=== PATIENT | male | born 1940 | race Caucasian/White ===

== ENCOUNTER 2018-06-19 21:58 | Emergency (ER) | payer OTHER ==
[2018-06-20] MEDS ORDERED: ALBUTEROL 2.5 MG/3 ML NEB SOL ONE (00:20)
[2018-06-20] MEDS ORDERED: IPRATROPIUM BROM 0.5MG/2.5ML ONE (00:20)
--- NOTE | 2018-06-20 00:24 | EDPHYS ---
Physician Documentation [facility] Name: Akira Murphy Age: 78 yrs Sex: Male : 1940 Arrival Date: 06/19/2018 Time: 22:01 Bed 20 Private MD: Mary Reich C ED Physician Basilio Orona HPI: 06/20 06:51 This 78 yrs old Male presents to ER via Ambulatory with complaints of tw4 Congestion, Cough. 06:51 The patient or guardian reports cough, with productive sputum. Onset: The tw4 symptoms/episode began/occurred 2 day(s) ago. Severity of symptoms: At their worst the symptoms were moderate. Modifying factors: The symptoms are alleviated by nothing, the symptoms are aggravated by nothing. The patient has not experienced similar symptoms in the past. Historical: - Allergies: 06/19 22:30 Levaquin; jb4 22:30 Levofloxacin; jb4 - Home Meds: 22:30 Atenolol Oral [Active]; metformin 500 mg Oral TG24 2 times per day [Active]; jb4 Simvastatin Oral [Active]; valsartan Oral [Active]; Vitamin C 1,000 mg Oral tab daily [Active]; Vitamin B-12 Oral [Active]; Zyrtec 10 mg Oral tab 1 tab once daily [Active]; 22:30 Tradjenta oral oral [Active]; amlodipine oral [Active]; jb4 - PMHx: 22:30 allergies; Diabetes - NIDDM; GERD; High Cholesterol; Hypertension; jb4 - PSHx: 22:30 Neck Surgery; Bilateral Knee Replacement; jb4 - Immunization history:: Adult Immunizations up to date, Pneumococcal vaccine is not up to date, Flu vaccine is up to date. - Social history:: Smoking status: Patient/guardian denies using tobacco, but has a distant history of tobacco abuse, Patient uses alcohol, occasionally. - Ebola Screening: : No symptoms or risks identified at this time. ROS: 06/20 06:51 Constitutional: Negative for fever, chills, and weight loss, Cardiovascular: Negative tw4 for chest pain, palpitations, and edema, Abdomen/GI: Negative for abdominal pain, nausea, vomiting, diarrhea, and constipation, Back: Negative for injury and pain, MS/Extremity: Negative for injury and deformity, Skin: Negative for injury, rash, and discoloration, Neuro: Negative for headache, weakness, numbness, tingling, and seizure. Respiratory: Positive for cough, "sounds productive", Negative for dyspnea on exertion, shortness of breath, sputum production. Exam: 06:51 Constitutional: This is a well developed, well nourished patient who is awake, alert, tw4 and in no acute distress. Head/Face: Normocephalic, atraumatic. Chest/axilla: Normal chest wall appearance and motion. Nontender with no deformity. No lesions are appreciated. Cardiovascular: Regular rate and rhythm with a normal S1 and S2. No gallops, murmurs, or rubs. Normal PMI, no JVD. No pulse deficits. 06:51 Back: No spinal tenderness. No costovertebral tenderness. Full range of motion. MS/ Extremity: Pulses equal, no cyanosis. Neurovascular intact. Full, normal range of motion. Neuro: Awake and alert, GCS 15, oriented to person, place, time, and situation. Cranial nerves II-XII grossly intact. Motor strength 5/5 in all extremities. Sensory grossly intact. Cerebellar exam normal. Normal gait. 06:51 Respiratory: the patient does not display signs of respiratory distress, Respirations: normal, Breath sounds: wheezing: that is mild, is scattered. Vital Signs: 06/19 22:30 BP 134 / 58; Pulse 65; Resp 18; Temp 98.6(O); Pulse Ox 95% on R/A; Weight 115.21 kg jb4 (R); Height 5 ft. 9 in. (175.26 cm) (R); Pain 0/10; 06/20 00:00 BP 140 / 58; Pulse 58; Resp 18; Pulse Ox 95% on R/A; jb4 06/19 22:30 Body Mass Index 37.51 (115.21 kg, 175.26 cm) jb4 MDM: 06/19 22:20 Patient medically screened. tw4 06/20 06:51 Differential Diagnosis: Obstructed Airway Bronchitis Influenza Upper Respiratory tw4 Infection. Data reviewed: vital signs, nurses notes. Data interpreted: Pulse oximetry: Interpretation: normal. Test interpretation: by ED physician or midlevel provider: plain radiologic studies. Counseling: I had a detailed discussion with the patient and/or guardian regarding: the historical points, exam findings, and any diagnostic results supporting the discharge/admit diagnosis, lab results, radiology results. Medication response: albuterol nebulizer treatment(s) relieved the patient's symptoms. The patient is no longer wheezing. Response to treatment: the patient's symptoms have resolved after treatment, and as a result, I will discharge patient. 06/19 22:21 Order name: Flu tw4 06/19 22:21 Order name: Influenza Screen (A EDMS 06/19 22:21 Order name: Chest Single View XRAY tw4 Administered Medications: 00:13 Drug: Albuterol 2.5 mg Route: Inhalation; jb4 00:38 Follow up: Response: No adverse reaction; Wheezing unchanged jb4 00:13 Drug: AtroVENT Aerosol 0.5 mg Route: Inhalation; jb4 00:38 Follow up: Response: No adverse reaction; Wheezing unchanged jb4 Disposition: 06/20/18 00:23 Discharged to Home. Impression: Acute bronchitis. - Condition is Stable. - Discharge Instructions: Acute Bronchitis, Adult, Acute Bronchitis, [id number]. - Prescriptions for Tessalon Perles 100 mg Oral Capsule - take 1 capsule by ORAL route every 8 hours As needed; 15 capsule. Zithromax Z- [place] 250 mg Oral Tablet - take 1 tablet by ORAL route as directed for 5 days Day 1 - take two (2) tablets one time. Day 2, 3, 4 , 5 take one (1) tablet once daily.; 6 tablet. Albuterol Sulfate 90 mcg/actuation - inhale 1-2 puff by INHALATION route every 4-6 hours; 1 Inhaler. - Medication Reconciliation Form, Thank You Letter, Antibiotic Education, Prescription Opioid Use form. - Follow up: Mary Reich MD; When: Upon discharge from the Emergency Department; Reason: If symptoms return, Recheck today's complaints, Continuance of care. - Problem is new. - Symptoms have improved. Signatures: Dispatcher [employer] Albin Velasquez RN RN jb4 Basilio Orona MD MD tw4 Corrections: (The following items were deleted from the chart) 00:39 00:23 06/20/2018 00:23 Discharged to Home. Impression: Acute bronchitis. Condition is jb4 Stable. Forms are Medication Reconciliation Form, Thank You Letter, Antibiotic Education, Prescription Opioid Use. Follow up: Mary Reich; When: Upon discharge from the Emergency Department; Reason: If symptoms return, Recheck today's complaints, Continuance of care. Problem is new. Symptoms have improved. tw4
--- NOTE | 2018-06-20 00:24 | ER ---
Nurse's Notes [facility] Name: Akira Murphy Age: 78 yrs Sex: Male : 1940 Arrival Date: 06/19/2018 Time: 22:01 Bed 20 Private MD: Mary Reich C Diagnosis: Acute bronchitis Presentation: 06/19 22:44 Presenting complaint: Patient states: I have been coughing since Thursday and I am jb4 coughing stuff up. I went to Dr. Reich and was given Mucinex and Amoxicillin. Transition of care: patient was not received from another setting of care. Onset of symptoms was June 15, 2018. Risk Assessment: Do you want to hurt yourself or someone else? Patient reports no desire to harm self or others. Initial Sepsis Screen: Does the patient meet any 2 criteria? No. Patient's initial sepsis screen is negative. Does the patient have a suspected source of infection? No. Patient's initial sepsis screen is negative. Care prior to arrival: None. 22:44 Method Of Arrival: Ambulatory jb4 22:44 Acuity: DARLIN 3 jb4 Historical: - Allergies: 22:30 Levaquin; jb4 22:30 Levofloxacin; jb4 - Home Meds: 22:30 Atenolol Oral [Active]; metformin 500 mg Oral TG24 2 times per day [Active]; jb4 Simvastatin Oral [Active]; valsartan Oral [Active]; Vitamin C 1,000 mg Oral tab daily [Active]; Vitamin B-12 Oral [Active]; Zyrtec 10 mg Oral tab 1 tab once daily [Active]; 22:30 Tradjenta oral oral [Active]; amlodipine oral [Active]; jb4 - PMHx: 22:30 allergies; Diabetes - NIDDM; GERD; High Cholesterol; Hypertension; jb4 - PSHx: 22:30 Neck Surgery; Bilateral Knee Replacement; jb4 - Immunization history:: Adult Immunizations up to date, Pneumococcal vaccine is not up to date, Flu vaccine is up to date. - Social history:: Smoking status: Patient/guardian denies using tobacco, but has a distant history of tobacco abuse, Patient uses alcohol, occasionally. - Ebola Screening: : No symptoms or risks identified at this time. Screenin:00 Abuse screen: Denies threats or abuse. Nutritional screening: No deficits noted. jb4 Tuberculosis screening: No symptoms or risk factors identified. Fall Risk None identified. Assessment: 23:00 General: Appears comfortable, obese, Behavior is calm, cooperative, appropriate for jb4 age. Pain: Complains of pain in right lower quadrant and left lower quadrant Pain radiates to low back area Pain currently is 0 out of 10 on a pain scale. at worst was 5 out of 10 on a pain scale. Aggravated by Coughing. Neuro: Level of Consciousness is awake, alert, obeys commands, Oriented to person, place, time, situation. Cardiovascular: Heart tones S1 S2 present Patient's skin is warm and dry. Respiratory: Airway is patent Respiratory effort is even, unlabored, Respiratory pattern is regular, symmetrical, Breath sounds with rhonchi bilaterally. GI: Reports lower abdominal pain, With coughing. : No signs and/or symptoms were reported regarding the genitourinary system. EENT: No signs and/or symptoms were reported regarding the EENT system. Derm: Skin is intact, Skin is pink, warm \T\ dry. Musculoskeletal: Circulation, motion, and sensation intact. 06/20 00:00 Reassessment: No changes from previously documented assessment. Patient and/or family jb4 updated on plan of care and expected duration. Pain level reassessed. Patient is alert, oriented x 3, equal unlabored respirations, skin warm/dry/pink. 00:35 Reassessment: Patient appears in no apparent distress at this time. Patient and/or jb4 family updated on plan of care and expected duration. Pain level reassessed. Patient is alert, oriented x 3, equal unlabored respirations, skin warm/dry/pink. Vital Signs: 06/19 22:30 BP 134 / 58; Pulse 65; Resp 18; Temp 98.6(O); Pulse Ox 95% on R/A; Weight 115.21 kg jb4 (R); Height 5 ft. 9 in. (175.26 cm) (R); Pain 0/10; 06/20 00:00 BP 140 / 58; Pulse 58; Resp 18; Pulse Ox 95% on R/A; jb4 06/19 22:30 Body Mass Index 37.51 (115.21 kg, 175.26 cm) [facility] ED Course: 06/19 22:01 Patient arrived in ED. es 22:01 Mary Reich MD is Private Physician. es 22:20 Basilio Orona MD is Attending Physician. tw4 22:26 Alicia Silveira, RN is Primary Nurse. lp1 22:30 Arm band placed on right wrist. jb4 22:33 Chest Single View XRAY In Process Unspecified. EDMS 22:47 Triage completed. jb4 23:00 Patient has correct armband on for positive identification. Placed in gown. Bed in low jb4 position. Call light in reach. Side rails up X 1. Pulse ox on. NIBP on. 23:01 Albin Velasco, RN is Primary Nurse. jb4 03 00:22 Mary Reich MD is Referral Physician. tw4 00:35 No provider procedures requiring assistance completed. Patient did not have IV access jb4 during this emergency room visit. Administered Medications: 00:13 Drug: Albuterol 2.5 mg Route: Inhalation; jb4 00:38 Follow up: Response: No adverse reaction; Wheezing unchanged jb4 00:13 Drug: AtroVENT Aerosol 0.5 mg Route: Inhalation; jb4 00:38 Follow up: Response: No adverse reaction; Wheezing unchanged jb4 Outcome: 00:23 Discharge ordered by . tw4 00:35 Discharged to home ambulatory, with family. jb4 00:35 Condition: stable 00:35 Discharge instructions given to patient, Instructed on discharge instructions, follow up and referral plans. medication usage, Demonstrated understanding of instructions, follow-up care, medications, Prescriptions given X 3. 00:39 Patient left the ED. jb4 Signatures: Dispatcher [employer] EDWI Fabi Salas Alicia Silveira, RAHUL RN lp1 Albin Velasco, RAHUL AKY jb4 Basilio Orona MD MD tw4
--- NOTE | 2018-06-20 11:39 | RAD REPORT ---
EXAM DESCRIPTION: RAD - Chest Single View - 06/19/2018 10:33 pm CLINICAL HISTORY: COUGH Chest pain. COMPARISON: Chest Pa And Lat (2 Views) dated 11/30/2017; Chest Pa And Lat (2 Views) dated 10/01/2016; ABDOMEN 1 VIEW KUB dated 10/18/2014; CHEST PA AND LAT 2 VIEW dated 10/18/2014 FINDINGS: Portable technique limits examination quality. Calcified pleural plaquing suspected bilaterally. The lungs are grossly clear of acute infiltrate. Th e heart is normal in size. No displaced fractures. IMPRESSION: No acute intrathoracic process suspected.
== END 2018-06-20 00:39 | disposition home or self-care (01) ==
LOC: ER 21:58
DX: J20.9 Acute bronchitis, unspecified (principal); I10 Essential (primary) hypertension; E78.00 Pure hypercholesterolemia, unspecified; E11.9 Type 2 diabetes mellitus without complications; Z88.1 Allergy status to other antibiotic agents
CPT/HCPCS: 71045; 87804; 99284

== ENCOUNTER 2018-10-25 12:45 | Observation (INO) | payer OTHER ==
--- OUTSIDE RECORDS SUMMARY | 2018-10-25 12:48 | XMS REPORT ---
:1940 [facility] Address [address] [place] [address] [address] [place] [address] Care Team Providers Name Role Phone Unavailable Unavailable Unavailable Problems This patient has no known problems. Allergies, Adverse Reactions, Alerts This patient has no known allergies or adverse reactions. Medications This patient has no known medications.
[2018-10-25 13:44] LABS: Absolute Lymphocytes (CBC) 1.7 K/uL (0.7-4.9); Basophils % 0.6 % (0-1.3); Eosinophils % 4.5 % (0-4.4); Hematocrit 45.2 % (39.6-49.0); Lymphocytes % 23.6 % (15.3-44.8); MPV 9.2 fL (7.6-11.3); Monocytes % 10.8 % (3.3-12.3); Protime INR 1.05; RBC Red Blood Cell Count 4.86 M/uL (4.33-5.43)
--- NOTE | 2018-10-25 13:50 | RAD REPORT ---
EXAM DESCRIPTION: RAD - Chest Single View - 10/25/2018 1:24 pm CLINICAL HISTORY: CHEST PAIN Chest pain. COMPARISON: Chest Single View dated 06/19/2018; Chest Pa And Lat (2 Views) dated 11/30/2017; Chest Pa A nd Lat (2 Views) dated 10/01/2016; ABDOMEN 1 VIEW KUB dated 10/18/2014 FINDINGS: Portable technique limits examination quality. The lungs are grossly clear. Bilateral calcified pleural plaques noted. The heart is normal in size. No displaced fractures. IMPRESSION: No acute intrathoracic process suspected.
[2018-10-25 13:59] LABS: ALT/SGPT 30 U/L (12-78); AST/SGOT 18 U/L (15-37); Albumin 4.1 g/dL (3.4-5.0); Alkaline Phosphatase 64 U/L (45-117); BUN Blood Urea Nitrogen 19 mg/dL (7-18); Bicarbonate 26 mmol/L (21-32); Bilirubin Direct 0.2 mg/dL (0-0.2); Bilirubin Total 0.7 mg/dL (0.2-1.0); Glucose Level 113 mg/dL (74-106); Magnesium 2.2 mg/dL (1.8-2.4); NT PRO-BNP 100 pg/mL (<450); Potassium 4.1 mmol/L (3.5-5.1); Protein, Total 7.5 g/dL (6.4-8.2); Sodium Level 141 mmol/L (136-145); Troponin (Emerg Dept Use Only) < 0.02 ng/mL (0.0-0.045)
--- NOTE | 2018-10-25 14:39 | RAD REPORT ---
EXAM DESCRIPTION: CT - Chest Angio - 10/25/2018 2:27 pm CLINICAL HISTORY: Chest pain. CHEST PAIN COMPARISON: No comparisons TECHNIQUE: CT angiogram of the pulmonary arteries was performed with MIP. All CT scans are performed using dose optimization technique as appropriate and may include automated exposure control or mA/KV adjustment according to patient size. FINDINGS: No evidence of pulmonary thromboembolism. No acute aortic finding demonstrated. Diffuse COPD is present. A somewhat irregularly-shaped opacity in the right apex measuring 3 cm is no arely which could be an area of atelectasis or pneumonia. A neoplastic lesion is felt to be considered less likely, however follow-up CT would be advised in 2-3 months to ensure stability or resolution. Calcified pleural plaques are present bilaterally compatible with previous asbestos exposure. No concerning bony finding. IMPRESSION: No evidence of pulmonary thromboembolism. COPD with poorly defined 3 cm opacity in the right apex as detailed. Follow-up CT chest would be advi sed in 2-3 months to ensure resolution or stability. Calcified pleural plaques bilaterally most compatible with prior asbestos exposure.
--- NOTE | 2018-10-25 15:41 | EKG ---
Test Date: 2018-10-25 Test Time: 12:56:54 Flour Mixer Helper: NIGHAT MEASUREMENT RESULTS: Intervals: Rate: 52 MN: 202 QRSD: 150 QT: 446 QTc: 414 [place]: P: 40 MN: 202 QRS: 12 T: 29 INTERPRETIVE STATEMENTS: Sinus bradycardia Right bundle branch block Abnormal ECG Compared to ECG 09/12/2014 23:39:04 Right bundle-branch block now present Electronically Signed On 10-25-18 15:41:10 CDT by Evaristo Figueredo
--- NOTE | 2018-10-25 16:17 | ER ---
Nurse's Notes [facility] Name: Akira Murphy Age: 78 yrs Sex: Male : 1940 Arrival Date: 10/25/2018 Time: 12:52 Bed 2 Private MD: Diagnosis: Chest pain, unspecified;Bradycardia, unspecified Presentation: 10/25 12:52 Presenting complaint: Patient states: "I was driving when I started having chest pain aa5 and started feeling weak and that was about an hour ago". Pt reports chest pain lasted approximately 25 minutes, denies nausea, denies diaphoresis. 12:52 Acuity: DARLIN 3 aa5 13:00 Transition of care: patient was not received from another setting of care. Onset of sg symptoms was October 25, 2018. Risk Assessment: Do you want to hurt yourself or someone else? Patient reports no desire to harm self or others. Initial Sepsis Screen: Does the patient meet any 2 criteria? No. Patient's initial sepsis screen is negative. Does the patient have a suspected source of infection? No. Patient's initial sepsis screen is negative. Care prior to arrival: None. 13:00 Method Of Arrival: Ambulatory sg Historical: - Allergies: 12:53 Levaquin (itching ); aa5 - PMHx: 12:53 allergies; Diabetes - NIDDM; GERD; High Cholesterol; Hypertension; aa5 - PSHx: 12:53 Neck Surgery; Bilateral Knee Replacement; aa5 - Immunization history:: Pneumococcal vaccine is not up to date, Flu vaccine is up to date. - Social history:: Smoking status: Patient/guardian denies using tobacco. - Ebola Screening: : No symptoms or risks identified at this time. Screenin:00 Abuse screen: Denies threats or abuse. Denies injuries from another. Nutritional sg screening: No deficits noted. Tuberculosis screening: No symptoms or risk factors identified. Never had TB. Fall Risk None identified. Assessment: 13:00 General: Appears in no apparent distress. well groomed, well developed, well nourished, sg Behavior is calm, cooperative, appropriate for age. Pain: Complains of pain in anterior aspect of left upper chest and mid-sternal area Quality of pain is described as aching, sharp. Neuro: Level of Consciousness is awake, alert, obeys commands, Oriented to person, place, time, situation, Psychiatric Rn are equal bilaterally Moves all extremities. Full function Gait is steady, Speech is normal, Facial symmetry appears normal. Cardiovascular: Capillary refill is brisk in bilateral fingers Patient's skin is warm and dry. Chest pain is denied. 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 Respiratory: Airway is patent Respiratory effort is even, unlabored, Respiratory pattern is regular, symmetrical, Breath sounds are clear bilaterally. Denies cough, shortness of breath labored breathing. GI: Abdomen is round non-distended, Bowel sounds present X 4 quads. : No signs and/or symptoms were reported regarding the genitourinary system. EENT: No signs and/or symptoms were reported regarding the EENT system. Derm: Skin is pink, warm \\T\\ dry. Musculoskeletal: Circulation, motion, and sensation intact. Range of motion: intact in all extremities. 17:01 Reassessment: Patient appears in no apparent distress at this time. Patient and/or sg family updated on plan of care and expected duration. Pain level reassessed. Patient is alert, oriented x 3, equal unlabored respirations, skin warm/dry/pink. awaiting receiving nurse to take report at this time, pt and pt family stated understanding Patient denies pain at this time. Patient states feeling better. Vital Signs: 12:53 BP 153 / 80; Pulse 56; Resp 18 S; Temp 97.8(O); Pulse Ox 98% on R/A; Weight 115.21 kg aa5 (R); Height 5 ft. 9 in. (175.26 cm) (R); Pain 0/10; 14:40 BP 148 / 65; Pulse 57; Resp 18; Pulse Ox 98% ; sv 15:38 BP 151 / 73; Pulse 51; Resp 18; Pulse Ox 97% on R/A; jb1 16:31 BP 135 / 58; Pulse 47; Resp 16; Pulse Ox 98% ; sv 17:22 BP 156 / 68; Pulse 48; Resp 12; Pulse Ox 98% ; sv 12:53 Body Mass Index 37.51 (115.21 kg, 175.26 cm) aa5 ED Course: 12:52 Patient arrived in ED. aa5 12:52 Arm band placed on Patient placed in an exam room, on a stretcher. aa5 12:55 Triage completed. aa5 12:56 EKG done, by emergency care tech. aa5 13:00 Patient has correct armband on for positive identification. Placed in gown. Bed in low sg position. Call light in reach. Side rails up X2. telemetry monitor on. Pulse ox on. NIBP on. Warm blanket given. Head of bed elevated. 13:00 Initial lab(s) drawn, by me, sent to lab. Inserted saline lock: 20 gauge in right sg antecubital area, using aseptic technique. Blood collected. 13:03 Andrew Corado MD is Attending Physician. kdr 13:07 Apollo Wilder, RN is Primary Nurse. sg 13:25 XRAY Chest (1 view) In Process Unspecified. EDMS 14:[address] via stretcher. 2 14:26 CT completed. Patient tolerated procedure well. Patient moved back from CT. 2 14:27 CT Chest Angio In Process Unspecified. EDMS 15:38 Repeat lab(s) drawn. by me, sent to lab. jb1 16:07 Basic Metabolic Panel Sent. sv 16:14 Mervat Owens MD is Hospitalizing Provider. kdr 17:25 No provider procedures requiring assistance completed. Patient admitted, IV remains in sg place. intact, bleeding controlled, No redness/swelling at site. Pressure dressing applied. Administered Medications: No medications were administered Outcome: 16:16 Decision to Hospitalize by Provider. kdr 17:25 Admitted to Tele accompanied by [facility], via wheelchair, room 423, with chart. sg 17:25 Condition: good 17:25 Instructed on the need for admit, safety practices, Demonstrated understanding of instructions. 17:27 Patient left the ED. sg Signatures: Dispatcher [employer] EDDoc Brock jb1 Constance Whitmore, Apollo Lucia RN, RN RN Andrew Corado MD MD [facility] Clarisa Majano RN RN florencia Bonny Mason 2
--- NOTE | 2018-10-25 16:17 | EDPHYS ---
Physician Documentation [facility] Name: Akira Murphy Age: 78 yrs Sex: Male : 1940 Arrival Date: 10/25/2018 Time: 12:52 Bed 2 Private MD: ED Physician Andrew Corado HPI: 10/25 13:30 This 78 yrs old Male presents to ER via Unassigned with complaints of Chest kdr Pain > 30 y/o. 13:30 The patient or guardian reports chest pain that is located primarily in the substernal kdr area, epigastric area. Onset: suddenly, at 11:00. The pain radiates to back. Associated signs and symptoms: Pertinent positives: nausea, Pertinent negatives: abdominal pain, diaphoresis, headache, lightheadedness, near syncope, palpitations, shortness of breath. The chest pain is described as aching, sharp, stabbing. Duration: The patient or guardian reports a single episode, that is still ongoing, but improving. Modifying factors: The symptoms are alleviated by nothing. the symptoms are aggravated by nothing. Severity of pain: At its worst the pain was severe just prior to arrival, a 8 / 10 in the emergency department the pain has improved markedly, is a 2 / 10. The patient has not experienced similar symptoms in the past. The patient has not recently seen a physician. Historical: - Allergies: 12:53 Levaquin (itching ); aa5 - PMHx: 12:53 allergies; Diabetes - NIDDM; GERD; High Cholesterol; Hypertension; aa5 - PSHx: 12:53 Neck Surgery; Bilateral Knee Replacement; aa5 - Immunization history:: Pneumococcal vaccine is not up to date, Flu vaccine is up to date. - Social history:: Smoking status: Patient/guardian denies using tobacco. - Ebola Screening: : No symptoms or risks identified at this time. ROS: 13:30 Constitutional: Negative for fever, chills, and weight loss, Eyes: Negative for injury, kdr pain, redness, and discharge, ENT: Negative for injury, pain, and discharge, Neck: Negative for injury, pain, and swelling, Respiratory: Negative for shortness of breath, cough, wheezing, and pleuritic chest pain, Back: Negative for injury and pain, : Negative for injury, bleeding, discharge, and swelling, MS/Extremity: Negative for injury and deformity, Skin: Negative for injury, rash, and discoloration, Neuro: Negative for headache, weakness, numbness, tingling, and seizure activity. Psych: Negative for depression, anxiety, suicide ideation, homicidal ideation, and hallucinations, Allergy/Immunology: Negative for hives, rash, and allergies, Endocrine: Negative for neck swelling, polydipsia, polyuria, polyphagia, and marked weight changes, Hematologic/Lymphatic: Negative for swollen nodes, abnormal bleeding, and unusual bruising. 13:30 Cardiovascular: Positive for chest pain, Negative for edema, orthopnea, palpitations, paroxysmal nocturnal dyspnea. 13:30 Abdomen/GI: Positive for nausea, Negative for diarrhea, constipation, abdominal cramps, abdominal distension, anorexia, black/tarry stool, rectal pain. Exam: 13:30 Constitutional: This is a well developed, well nourished patient who is awake, alert, kdr and in no acute distress. Head/Face: Normocephalic, atraumatic. Eyes: Pupils equal round and reactive to light, extra-ocular motions intact. Lids and lashes normal. Conjunctiva and sclera are non-icteric and not injected. Cornea within normal limits. Periorbital areas with no swelling, redness, or edema. Neck: Trachea midline, no thyromegaly or masses palpated, and no cervical lymphadenopathy. Supple, full range of motion without nuchal rigidity, or vertebral point tenderness. No Meningismus. Chest/axilla: Normal chest wall appearance and motion. Nontender with no deformity. No lesions are appreciated. Cardiovascular: Regular rate and rhythm with a normal S1 and S2. No gallops, murmurs, or rubs. Normal PMI, no JVD. No pulse deficits. Respiratory: Lungs have equal breath sounds bilaterally, clear to auscultation and percussion. No rales, rhonchi or wheezes noted. No increased work of breathing, no retractions or nasal flaring. Back: No spinal tenderness. No costovertebral tenderness. Full range of motion. Skin: Warm, dry with normal turgor. Normal color with no rashes, no lesions, and no evidence of cellulitis. MS/ Extremity: Pulses equal, no cyanosis. Neurovascular intact. Full, normal range of motion. Neuro: Awake and alert, GCS 15, oriented to person, place, time, and situation. Cranial nerves II-XII grossly intact. Motor strength 5/5 in all extremities. Sensory grossly intact. Cerebellar exam normal. Normal gait. Psych: Awake, alert, with orientation to person, place and time. Behavior, mood, and affect are within normal limits. Vital Signs: 12:53 BP 153 / 80; Pulse 56; Resp 18 S; Temp 97.8(O); Pulse Ox 98% on R/A; Weight 115.21 kg aa5 (R); Height 5 ft. 9 in. (175.26 cm) (R); Pain 0/10; 14:40 BP 148 / 65; Pulse 57; Resp 18; Pulse Ox 98% ; sv 15:38 BP 151 / 73; Pulse 51; Resp 18; Pulse Ox 97% on R/A; jb1 16:31 BP 135 / 58; Pulse 47; Resp 16; Pulse Ox 98% ; sv 17:22 BP 156 / 68; Pulse 48; Resp 12; Pulse Ox 98% ; sv 12:53 Body Mass Index 37.51 (115.21 kg, 175.26 cm) aa5 MDM: 15:58 HEART Score: History: Moderately Suspicious (1), ECG: Age: > or = 65 years (2), Risk kdr Factors: > or = 3 Risk factors for atherosclerotic disease (2), [Hypercholesterolemia] [Hypertension] [DM]. Data reviewed: vital signs, nurses notes. Counseling: I had a detailed discussion with the patient and/or guardian regarding: the historical points, exam findings, and any diagnostic results supporting the discharge/admit diagnosis, lab results, radiology results. Physician consultation: Evaristo Figueredo MD. 16:16 Patient medically screened. kdr 10/25 13:00 Order name: Glucose, Ancillary Testing; Complete Time: 14:38 EDMS 10/25 13:11 Order name: Basic Metabolic Panel kdr 10/25 13:11 Order name: CBC with Diff; Complete Time: 14:38 kdr 10/25 13:11 Order name: LFT's; Complete Time: 14:38 kdr 10/25 13:11 Order name: Magnesium; Complete Time: 14:38 kdr 10/25 13:11 Order name: NT PRO-BNP; Complete Time: 14:38 kdr 10/25 13:11 Order name: PT-INR; Complete Time: 14:38 kdr 10/25 13:11 Order name: Troponin (emerg Dept Use Only); Complete Time: 14:38 [facility] 10/25 13:12 Order name: Basic Metabolic Panel; Complete Time: 14:38 [facility] 10/25 15:13 Order name: Troponin (emerg Dept Use Only) [facility] 10/25 16:20 Order name: Troponin I [facility] 10/25 16:20 Order name: Troponin I [facility] 10/25 16:20 Order name: Troponin I [facility] 10/25 16:20 Order name: Troponin I [facility] 10/25 13:11 Order name: XRAY Chest (1 view); Complete Time: 14:38 [facility] 10/25 13:11 Order name: EKG; Complete Time: 13:13 [facility] 10/25 13:11 Order name: Cardiac monitoring; Complete Time: 13:37 [facility] 10/25 13:11 Order name: EKG - Nurse/Tech; Complete Time: 13:37 [facility] 10/25 13:11 Order name: IV Saline Lock; Complete Time: 13:37 [facility] 10/25 13:11 Order name: Labs collected and sent; Complete Time: 13:37 [facility] 10/25 13:11 Order name: O2 Per Protocol; Complete Time: 13:37 [facility] 10/25 13:11 Order name: O2 Sat Monitoring; Complete Time: 13:37 [facility] 10/25 14:03 Order name: CT Chest Angio; Complete Time: 15:12 [facility] 10/25 16:20 Order name: CONS Physician Consult [facility] 10/25 16:58 Order name: Diet Heart Healthy; Complete Time: 16:59 sg Administered Medications: No medications were administered Disposition: 10/25/18 16:16 Hospitalization ordered by Mervat Owens for Observation. Preliminary diagnosis are Chest pain, unspecified, Bradycardia, unspecified. - Bed requested for Telemetry/MedSurg (observation). - Status is Observation. sg - Condition is Fair. - Problem is new. - Symptoms have improved. UTI on Admission? No Signatures: Dispatcher [employer] [facility] Kanwal Carlton Steven, RN RN sg Andrew Corado MD MD kdr Clarisa Majano, RN RN aa5 Corrections: (The following items were deleted from the chart) 16:50 16:16 Hospitalization Ordered by Mervat Owens MD for Observation. Preliminary bd diagnosis is Chest pain, unspecified; Bradycardia, unspecified. Bed requested for Telemetry/MedSurg (observation). Status is Observation. Condition is Fair. Problem is new. Symptoms have improved. UTI on Admission? No. kdr 17:26 16:50 10/25/2018 16:16 Hospitalization Ordered by Mervat Owens MD for Observation. sg Preliminary diagnosis is Chest pain, unspecified; Bradycardia, unspecified. Bed requested for Telemetry/MedSurg (observation). Status is Observation. Condition is Fair. Problem is new. Symptoms have improved. UTI on Admission? No. bd 17:27 17:26 10/25/2018 16:16 Hospitalization Ordered by Mervat Owens MD for Observation. sg Preliminary diagnosis is Chest pain, unspecified; Bradycardia, unspecified. Bed requested for Telemetry/MedSurg (observation). Status is Observation. Condition is Fair. Problem is new. Symptoms have improved. UTI on Admission? No. sg
--- NOTE | 2018-10-25 17:49 | P.HP ---
Certification for Inpatient Patient admitted to: Observation With expected LOS: <2 Midnights Patient will require the following post-hospital care: None Practitioner: I am a practitioner with admitting privileges, knowledge of patient current condition, hospital course, and medical plan of care. Services: Services provided to patient in accordance with Admission requirements found in Title 42 Section 412.3 of the Code of Federal Regulations Patient History Date of Service: 10/25/18 Primary Care Provider: Dr Reich (Hospitalist Is covering) Reason for admission: Chest pain History of Present Illness: This is a 38-year-old male with past history of hypertension, diabetes, hyperlipidemia and GERD who presented to the ED complaining of having some chest pain. Patient stated that the chest pain started when he was driving about an hr ago before coming to the ER. Patient stated that his pain got progressively worse and he decided to come to the ER once he started also feeling weak. Patient stated that he had the pain for total 25 min which was intermittent in nature as well. Pain was sharp shooting in the chest. Patient denies having any nausea vomiting shortness of breath or any diaphoresis at that time. Patient has not had similar symptoms in the past. Patient was seen and evaluated in the ER had EKG and troponins done. EKG was consistent with sinus bradycardia with heart rate of 56. Cardiology was consulted who recommended admitting the patient and this patient was referred over to admission for further care. Allergies levofloxacin [From Levaquin] Allergy (Unverified 09/13/14 02:28) Unknown Home medications list reviewed: Yes - Past Medical/Surgical History Has patient received pneumonia vaccine in the past: Yes Diabetic: No -: HTN -: Diabetes -: Hyperlipidemia Past Surgical History: Reviewed- Non-Contributory - Family History Family History: Reviewed- Non-Contributory - Social History Smoking Status: Never smoker Counseled patient to stop smoking for: more than 10 minutes Smoking therapy provided: Yes Patient receptive to therapy: Yes Alcohol use: No CD- Drugs: No Caffeine use: No Place of Residence: Home Review of Systems 10-point ROS is otherwise unremarkable Physical Examination - Physical Exam General: Alert, In no apparent distress HEENT: Atraumatic, PERRLA, Mucous membr. moist/pink, EOMI, Sclerae nonicteric Neck: Supple, 2+ carotid pulse no bruit, No LAD, Without JVD or thyroid abnormality Respiratory: Clear to auscultation bilaterally, Normal air movement Cardiovascular: Regular rate/rhythm, Normal S1 S2 Gastrointestinal: Normal bowel sounds, No tenderness Musculoskeletal: No tenderness Integumentary: No rashes Neurological: Normal gait, Normal speech, Normal strength at 5/5 x4 extr, Normal tone, Normal affect Lymphatics: No axilla or inguinal lymphadenopathy - Studies Laboratory Data (last 24 hrs) 10/25/18 13:00: PT 12.4, INR 1.05 10/25/18 13:00: WBC 7.3, Hgb 15.0, Hct 45.2, Plt Count 246 10/25/18 13:00: Sodium 141, Potassium 4.1, BUN 19 H, Creatinine 1.43 H, Glucose 113 H, Magnesium 2.2, Total Bilirubin 0.7, AST 18, ALT 30, Alkaline Phosphatase 64 Assessment and Plan - Problems (Diagnosis) (1) Chest pain Current Visit: Yes Status: Acute Plan: Chest pain ACS r/o -Troponin x 1 negative in ER. EKG with RBBB/Sinus Bradycardia -Cardiology consulted. Awaiting reccs -Repeat Troponin x 2 -heart score of 3 -ECHO and stress per Cards reccs -ACS protocol Qualifiers: Chest pain type: other chest pain Qualified Code(s): R07.89 - Other chest pain; R07.8 - Other chest pain (2) Bradycardia Current Visit: Yes Status: Acute Plan: Sinus bradycardia without any symptoms. -Pt also did take Atenolol this AM with his other medication -EKG with Sinus Bradycardia for 4 to 5 mins -Now resolved. -Will monitor for next 24hrs (3) HTN (hypertension) Current Visit: Yes Status: Chronic Plan: Restart Home medication Qualifiers: Hypertension type: essential hypertension Qualified Code(s): I10 - Essential (primary) hypertension (4) Diabetes Current Visit: Yes Status: Chronic Plan: ISS and accuchecks Qualifiers: Diabetes mellitus type: type 2 Diabetes mellitus mcfp insulin use: without mcfp use Diabetes mellitus complication status: without complication Qualified Code(s): E11.9 - Type 2 diabetes mellitus without complications (5) Hyperlipidemia Current Visit: Yes Status: Chronic Qualifiers: Hyperlipidemia type: mixed hyperlipidemia Qualified Code(s): E78.2 - Mixed hyperlipidemia Discharge Plan: Home Plan to discharge in: 24 Hours - Advance Directives Does patient have a Living Will: No Does patient have a Durable POA for Healthcare: No - Code Status/Comfort Care Code Status Assessed: Yes Critical Care: No
[2018-10-25] MEDS ORDERED: D50W 25 GM/50 ML SYRINGE IV PRN (18:02)
[2018-10-25] MEDS ORDERED: GLUCAGON 1 MG/VIAL IM PRN (18:02)
[2018-10-25 18:50] LABS: Urine Appearance CLEAR; Urine Bilirubin NEGATIVE (NEG); Urine Blood NEGATIVE (NEG); Urine Color YELLOW; Urine Glucose NEGATIVE (NEG); Urine Protein NEGATIVE (NEG); Urine Specific Gravity >=1.030 (1.005-1.030); Urine Urobilinogen 0.2 mg/dL (0.2-1.0)
[2018-10-25 18:52] LABS: Urine Microscopic Reflex NO UMIC
[2018-10-25] MEDS ORDERED: PNEUMOCOCCAL VACCINE 0.5 ML IMVAC ONE (19:00)
[2018-10-25] MEDS: INSULIN -REGULAR HUMAN 50 UNIT/0.5 ML ML SQ SCH (21:00)
[2018-10-26 06:21] LABS: Basophils % 0.6 % (0-1.3); Eosinophils % 3.7 % (0-4.4); Hematocrit 45.1 % (39.6-49.0); MPV 9.5 fL (7.6-11.3); Monocytes % 10.4 % (3.3-12.3); RBC Red Blood Cell Count 4.88 M/uL (4.33-5.43)
[2018-10-26 06:25] LABS: Albumin 4.1 g/dL (3.4-5.0); Bilirubin Total 0.6 mg/dL (0.2-1.0); Potassium 4.3 mmol/L (3.5-5.1); Protein, Total 7.3 g/dL (6.4-8.2)
[2018-10-26] MEDS: INSULIN -REGULAR HUMAN 50 UNIT/0.5 ML ML SQ SCH ×2 (07:30→12:25)
[2018-10-26] MEDS ORDERED: PNEUMOCOCCAL VACCINE 0.5 ML IMVAC ONE (10:00)
--- NOTE | 2018-10-26 12:32 | P.SSS ---
Patient History Date of Service: 10/26/18 Primary Care Provider: Dr Reich (Hospitalist Is covering) Reason for admission: Chest pain History of Present Illness: This is a 38-year-old male with past history of hypertension, diabetes, hyperlipidemia and GERD who presented to the ED complaining of having some chest pain. Patient stated that the chest pain started when he was driving about an hr ago before coming to the ER. Patient stated that his pain got progressively worse and he decided to come to the ER once he started also feeling weak. Patient stated that he had the pain for total 25 min which was intermittent in nature as well. Pain was sharp shooting in the chest. Patient denies having any nausea vomiting shortness of breath or any diaphoresis at that time. Patient has not had similar symptoms in the past. Patient was seen and evaluated in the ER had EKG and troponins done. EKG was consistent with sinus bradycardia with heart rate of 56. Cardiology was consulted who recommended admitting the patient and this patient was referred over to admission for further care. Allergies levofloxacin [From Levaquin] Allergy (Verified 10/25/18 18:10) Itching Home Medications: Amlodipine [Norvasc*] 5 mg PO DAILY 10/25/18 Ascorbic Acid [Vitamin C*] 1,000 mg PO DAILY 10/25/18 Aspirin [Adult Aspirin Regimen] 81 mg PO DAILY 10/25/18 Atenolol [Tenormin*] 25 mg PO DAILY 10/25/18 Cetirizine HCl [Zyrtec] 10 mg PO DAILY 10/25/18 Cholecalciferol (Vitamin D3) [Vitamin D3] 25 gm MC DAILY 10/25/18 Cyanocobalamin [Vitamin B-12*] 500 mcg PO DAILY 10/25/18 Linagliptin [Tradjenta] 5 mg PO DAILY 10/25/18 Metformin ER [Glucophage ER*] 500 mg PO BID 10/25/18 Simvastatin 20 mg PO DAILY 10/25/18 Valsartan 160 mg PO BID 10/25/18 - Past Medical/Surgical History Has patient received pneumonia vaccine in the past: Yes Diabetic: No -: HTN -: Diabetes -: Hyperlipidemia - Family History Family History: Reviewed- Non-Contributory - Social History Smoking Status: Never smoker Alcohol use: No CD- Drugs: No Caffeine use: No Place of Residence: Home Review of Systems 10-point ROS is otherwise unremarkable Physical Examination - Vital Signs Temperature: 97.2 F Blood Pressure: 138/64 Pulse: 61 Respirations: 16 Pulse Ox (%): 98 - Physical Exam General: Alert, In no apparent distress HEENT: Atraumatic, PERRLA, Mucous membr. moist/pink, EOMI, Sclerae nonicteric Neck: Supple, 2+ carotid pulse no bruit, No LAD, Without JVD or thyroid abnormality Respiratory: Clear to auscultation bilaterally, Normal air movement Cardiovascular: Regular rate/rhythm, Normal S1 S2 Gastrointestinal: Normal bowel sounds, No tenderness Musculoskeletal: No tenderness Integumentary: No rashes Neurological: Normal gait, Normal speech, Normal strength at 5/5 x4 extr, Normal tone, Normal affect Lymphatics: No axilla or inguinal lymphadenopathy - Studies Laboratory Data (last 24 hrs) 10/25/18 13:00: PT 12.4, INR 1.05 10/25/18 13:00: WBC 7.3, Hgb 15.0, Hct 45.2, Plt Count 246 10/25/18 13:00: Sodium 141, Potassium 4.1, BUN 19 H, Creatinine 1.43 H, Glucose 113 H, Magnesium 2.2, Total Bilirubin 0.7, AST 18, ALT 30, Alkaline Phosphatase 64 - Diagnosis (Problem(s)) (1) Chest pain Current Visit: Yes Status: Acute Qualifiers: Chest pain type: other chest pain Qualified Code(s): R07.89 - Other chest pain; R07.8 - Other chest pain (2) Bradycardia Current Visit: Yes Status: Resolved (3) HTN (hypertension) Current Visit: Yes Status: Chronic Qualifiers: Hypertension type: essential hypertension Qualified Code(s): I10 - Essential (primary) hypertension (4) Diabetes Current Visit: Yes Status: Chronic Qualifiers: Diabetes mellitus type: type 2 Diabetes mellitus senior living insulin use: without intermediate designer use Diabetes mellitus complication status: without complication Qualified Code(s): E11.9 - Type 2 diabetes mellitus without complications (5) Hyperlipidemia Current Visit: Yes Status: Chronic Qualifiers: Hyperlipidemia type: mixed hyperlipidemia Qualified Code(s): E78.2 - Mixed hyperlipidemia Treatment Summary: Overall during the hospital stay patient remained stable Patient was initially admitted to the hospital for chest pain ACS rule out. Patient had troponin x2 negative for acute abnormality. EKG was initially consistent with sinus Marcello but patient also had taken his beta-reinaldo at the same time. Patient's heart rate remained normal throughout the hospital stay while here in the hospital. Patient had referral to cardiology who saw the patient here in the hospital and recommended the patient could be discharged home and will be set up with outpatient stress test and echocardiogram with cardiology in about 1 week. Patient demonstrate understanding and thus was discharged home under stable condition. Patient was asked to continue all his medication as prescribed by his primary care - Disposition Disposition: ROUTINE DISCHARGE Condition: GOOD Patient Discharge Instructions: Please followup with cardiology in about 1 week post discharge. He will be set up with outpatient stress test and echocardiogram. Resume all home medication as prescribed by your primary care provider. Diet: Regular Activity: Ad jolanta
--- NOTE | 2018-10-26 15:39 | CON ---
Date of Consultation: 10/26/2018 The patient admitted on 10/25/[address] Owens's service. I saw the patient on 10/26/2009. Reason For Consultation: Chest pain. History Of Present Illness: Mr. Murphy is a 78-year-old male, has multiple cardiac risk factors in cluding hypertension, diabetes, dyslipidemia, and gastroesophageal reflux disease. He came in with a n ache that started in the midsternal area and spread towards his left shoulder in different location s. It was not diffuse. It did not radiate to the back or the jaw. He did not have shortness of delia ath, PND, orthopnea, pedal edema, palpitations, or syncope. Symptoms were not exertional, but that w ere not related to food, time of the day or any body position. He was already ruled out for an TX by the time I saw him. His EKG showed right bundle-branch block which is chronic. His chest x-ray was negative. He is asymptomatic now. Allergies: HE IS ALLERGIC TO LEVAQUIN. Review of Systems: Negative. Social History: Negative for tobacco. Family History: Negative for heart disease. Medications: At home, include Norvasc, aspirin, atenolol, valsartan, metformin, Tradjenta and Zocor. Physical Examination: Vital Signs: Stable. He was afebrile. General: He was in no acute distress. He was in sinus rhythm. HEENT: Negative. Neck: Supple without any bruit, lymphadenopathy, JVD, or thyromegaly. Chest: Clear to auscultation and percussion. Cardiac: Exam revealed a regular rhythm and rate. No murmurs, gallops, or rubs. Abdomen: Benign. Extremities: Revealed no clubbing, cyanosis, or edema. Diagnostic Data: His creatinine is 1.37, glucose 189. Troponin is negative. Impression And Plan: 1.Atypical chest pain, most likely musculoskeletal or gastric in nature. 2.Hypertension. 3.Diabetes. 4.Dyslipidemia. 5.Gastroesophageal reflux disease. 6.Bradycardia and abnormal EKG. 7.Renal insufficiency. Mr. Murphy is asymptomatically ruled out. I am not concerned about his bradycardia because of the atenolol he takes. He does not have dizziness or syncope. I am comfortable with him going home. I will make arrangements for him to have an echocardiogram and stress test as an outpatient. The case was discussed with Dr. Owens. NOHEMI/LAMIN Voice ID: [id number] Report ID: [id number]
== END 2018-10-26 13:35 | disposition home or self-care (01) ==
LOC: ER 12:45 → ERHOLD 16:18 → 4TH 17:28
PROVIDERS: ADMIT Family Medicine; ATTEND Family Medicine
DX: R07.89 Other chest pain (principal); I10 Essential (primary) hypertension; E78.5 Hyperlipidemia, unspecified; E11.9 Type 2 diabetes mellitus without complications; K21.9 Gastro-esophageal reflux disease without esophagitis; R00.1 Bradycardia, unspecified; R94.31 Abnormal electrocardiogram [ECG] [EKG]; N28.9 Disorder of kidney and ureter, unspecified; J44.9 Chronic obstructive pulmonary disease, unspecified; J94.8 Other specified pleural conditions; Z79.82 Long term (current) use of aspirin; Z79.84 Long term (current) use of oral hypoglycemic drugs; Z79.899 Other long term (current) drug therapy
CPT/HCPCS: 93005; 85025 ×2; 80048; 36415; 83735; 85610; 82962 ×4; 80076; 81003; 84484 ×4; 80053; 83880; 71275; 71045; 99285; Q9967; G0378 ×2; 90670

== ENCOUNTER 2021-03-31 09:04 | Emergency (ER) | payer OTHER ==
--- OUTSIDE RECORDS SUMMARY | 2021-03-31 09:07 | XMS REPORT | Continuity of Care Document ---
:1940 Author Organization [facility] t Address [address] [place] [address] Care Team Providers Name Role Phone Rachana Rylee Primary Care Physician SUSAN Attending Clinician Unavailable JUSTINE Attending Clinician Unavailable Nurse, Pob Immunization Attending Clinician Unavailable Kailash Mancini DO Attending Clinician TONY Attending Clinician Unavailable RINA Attending Clinician Unavailable MD MERCEDES FLYNN Attending Clinician Unavailable ALCIDES Attending Clinician Unavailable BEBO Attending Clinician Unavailable BRUNO Attending Clinician Unavailable Pedro Luis SANCHEZ, A Attending Clinician 1, Lab Attending Clinician Unavailable Doctor Unassigned, Name Attending Clinician Unavailable RINA Admitting Clinician Unavailable MD MERCEDES FLYNN Admitting Clinician Unavailable Pedro Luis SANCHEZ, Mary Admitting Clinician Payers Payer Name Policy Type Policy Number Effective Date Expiration Date S ource Problems This patient has no known problems. Allergies, Adverse Reactions, Alerts Allergy Allergy Status Severity Reaction(s) Onset Inactive Treating Comm ents Source Name Type Date Date Clinician Levoflox Propensi Active Itching Unive rs acin ty to 10-26 ity of adverse 00:00: [place] reaction 00 Medical s Branch Social History Social Habit Start Date Stop Date Quantity Comments Source Alcohol intake 2018-12-09 2018-12-09 Current drinker Unive rsity of 00:00:00 00:00:00 of alcohol [place] [facility] (finding) Branch Tobacco use and 2018-10-26 2018-10-26 Never used Universit y of exposure 00:00:00 00:00:00 [facility] Sex Assigned At [birth year] Universit y of 00:00:00 00:00:00 [facility] Smoking Status Start Date Stop Date Source Former smoker 2018-10-26 00:00:00 2018-10-26 00:00:00 [facility] Medications Ordered Filled Start Stop Current Ordering Indication Dosage Frequency Signature Comments Components Source Medication Medication Date Date Medication? Clinician (SIG) Name Name vitamin 2019- Yes 500ug Take 500 Unive rs B-12 (B-12 8-28 mcg by ity of DOTS) 500 09:24: mouth [place] mcg tablet 22 daily. Medical Branch aspirin 81 2018- Yes 81mg Take 81 mg U nivers mg chewable 8-28 by mouth ity of tablet 09:24: daily. [address] Branch linaGLIPtin 2018- Yes Take by Un hayes (TRADJENTA) 8-28 mouth ity of 5 mg tablet 09:24: [facility]. [facility] [address] amLODIPine 2018- Yes 5mg Take 5 mg Un hayes 5 mg tablet 8-28 by mouth ity of 09:24: daily. [address] metFORMIN 2018- Yes 500mg Take 500 Uni vers 500 mg 8-28 mg by ity of tablet 09:24: mouth [address] [place] [address] (two) Medical times [place] daily with meals. Indication s: on hold for now atenolol 25 2018- Yes 25mg Take 25 mg Univers mg tablet 8-28 by mouth ity of 09:24: daily. [address] valsartan 2018-0 Yes 160mg Take 160 Uni vers 160 mg 8-28 mg by ity of tablet 09:24: mouth 2 [place] [address] (two) Medical times Branch daily. simvastatin 2019-0 Yes 20mg Take 20 mg Univers 20 mg 8-28 by mouth ity of tablet 09:24: at [place] [address] bedtime. Medical Branch vitamin C 2019-0 Yes 1000mg Take 1,000 Univers with louise 8-28 mg by ity of hips 09:24: mouth [place] (VITAMIN C) 22 daily. Medica l 1,000 mg Branch tablet Cetirizine 2019-0 Yes 10mg Take 10 mg U nivers (ZYRTEC) 10 8-28 by mouth ity of mg capsule 09:24: daily. [place] 22 Medical Branch calcium 2019-0 Yes Take by [facility] s carbonate/v 8-28 mouth ity of itamin D3 09:24: daily. [place] (VITAMIN 22 Medical D-3 ORAL) Branch Immunizations Ordered Filled Immunization Date Status Comments Carol Ann e Immunization Name Name SARS-COV-2 COVID-19 2021-02-08 Completed Unive rsity of PFIZER VACCINE 00:00:00 [facility] Branch SARS-COV-2 COVID-19 2020-06-14 Completed Unive rsity of PFIZER VACCINE 00:00:00 [facility] Branch SARS-COV-2 COVID-19 2020-05-24 Completed Unive rsity of PFIZER VACCINE 00:00:00 [facility] Branch Procedures Procedure Date / Time Performed Performing Clinician Carol Ann wilder SARS-COV-2 COVID-19 2021-02-08 18:16:19 Doctor Unassigned, No Un iversity of [place] VACCINE,0.3ML,IM Name Medical Branch (PFIZER) Encounters Start End Encounter Admission Attending Care Care Encounter Source Date/Time Date/Time Type Type Clinicians Facility Department ID 2021-03-29 2021-03-29 Outpatient [facility] [id number] [place] 00:00:00 00:00:[address] 2021-03-28 2021-03-28 Outpatient [facility] [id number] [place] 00:00:00 00:00:[address] 2021-03-28 2021-03-28 Outpatient PARIS DAVIS [facility] [id number] [place] 00:00:00 00:00:[address] 2021-03-27 2021-03-27 Outpatient [facility] [id number] [place] 00:00:00 00:00:[address] 2021-03-27 2021-03-27 Outpatient [facility], BIN [facility] [id number] [place] 00:00:00 00:00:[address] 2021-03-27 2021-03-27 Outpatient JUSTINE, BIN [facility] [id number] [place] 00:00:00 00:00:[address] 2021-03-26 2021-03-26 Outpatient [facility] [id number] [place] 00:00:00 00:00:[address] 2021-03-25 2021-03-25 Outpatient [facility] [id number] [place] 00:00:00 00:00:[address] 2021-03-13 2021-03-13 Outpatient JUSTINE, BIN [facility] [id number] [place] 00:00:00 00:00:[address] 2021-03-13 2021-03-13 Outpatient JUSTINE, BIN [facility] [id number] [place] 00:00:00 00:00:[address] 2021-03-13 2021-03-13 Outpatient JUSTINE, BIN [facility] [id number] [place] 00:00:00 00:00:[address] 2021-03-12 2021-03-12 Outpatient [facility] [id number] 282 [place] 00:00:00 00:00:[address] 2021-03-11 2021-03-11 Outpatient [facility] [id number] 282 [place] 00:00:00 00:00:[address] 2021-03-06 2021-03-06 Outpatient [facility] [id number] 282 [place] 00:00:00 00:00:[address] 2021-03-06 2021-03-06 Outpatient JUSTINE, BIN [facility] [id number] [place] 00:00:00 00:00:[address] 2021-03-05 2021-03-05 Outpatient [facility] [id number] 282 [place] 00:00:00 00:00:[address] 2021-03-04 2021-03-04 Outpatient [facility] [id number] 282 [place] 00:00:00 00:00:[address] 2021-03-01 2021-03-01 Outpatient [facility] [id number] 282 [place] 00:00:00 00:00:[address] 2021-02-28 2021-02-28 Outpatient [facility] [id number] 282 [place] 00:00:00 00:00:[address] 2021-02-27 2021-02-27 Outpatient [facility] [id number] 282 [place] 00:00:00 00:00:[address] 2021-02-27 2021-02-27 Outpatient JUSTINE, BIN [facility] [id number] [place] 00:00:00 00:00:[address] 2021-02-26 2021-02-26 Outpatient [facility] [id number] [place] 00:00:00 00:00:[address] 2021-02-25 2021-02-25 Outpatient [facility] [id number] [place] 00:00:00 00:00:[address] 2021-02-22 2021-02-22 Outpatient JUSTINE, BIN [facility] [id number] [place] 00:00:00 00:00:[address] 2021-02-21 2021-02-21 Outpatient [facility] [id number] 282 [place] 00:00:00 00:00:[address] 2021-02-20 2021-02-20 Outpatient [facility] [id number] 282 [place] 00:00:00 00:00:[address] 2021-02-20 2021-02-20 Outpatient JUSTINE, BIN [facility] [id number] [place] 00:00:00 00:00:[address] 2021-02-19 2021-02-19 Outpatient [facility] [id number] [place] 00:00:00 00:00:[address] 2021-02-19 2021-02-19 Outpatient PARIS DAVIS [facility] [id number] [place] 00:00:00 00:00:[address] 2021-02-19 2021-02-19 Outpatient PARIS DAVIS [facility] [id number] [place] 00:00:00 00:00:[address] 2021-02-18 2021-02-18 Outpatient JUSTINE, BIN [facility] [id number] [place] 00:00:00 00:00:[address] 2021-02-11 2021-02-11 Outpatient JUSTINE, BIN [facility] [id number] [place] 00:00:00 00:00:[address] 2021-02-11 2021-02-11 Outpatient JUSTINE, BIN [facility] [id number] [place] 00:00:00 00:00:[address] 2021-02-08 2021-02-08 Imm/Inj Nurse, Adc Pob Immunization [facility] [id number] [facility] [place] [facility] 13:11:56 13:12:21 Visit Live Keyshawn Kailashsugey ACUNA [id number] .10 [facility] [id number] Reyna LINDA [id number] Nm dical NAL 421 [facility] 2021-02-07 2021-02-08 Outpatient JUSTINE, MARGE [facility] [id number] [place] 00:00:00 00:00:[address] 2021-02-07 2021-02-07 Outpatient JUSTINEMARGE [facility] [id number] [place] 00:00:00 00:00:[address] 2021-02-05 2021-02-05 Outpatient RUPALI JIMENEZ [facility] [id number] [place] 00:00:00 00:00:[address] 2021-01-14 2021-01-24 Inpatient GIANLUCA FLYNN [facility] 012 [id number] [place] 00:00:00 00:00:[address] 2021-01-22 2021-01-22 [facility] [id number] [place] 00:00:00 00:00:[address] 2021-01-14 2021-01-14 Outpatient ALCIDES [facility] [id number] [place] 00:00:00 00:00:00 RAY [address] 2021-01-11 2021-01-11 Outpatient WINTER LAGUNAS [facility] [id number] [place] 00:00:00 00:00:[address] 2021-01-03 2021-01-03 Outpatient WINTER LAGUNAS [facility] [id number] [place] 00:00:00 00:00:[address] 2021-01-02 2021-01-02 Outpatient WINTER LAGUNAS [facility] [id number] [place] 00:00:00 00:00:[address] 2020-12-20 2020-12-20 Outpatient [facility] [id number] [facility] 00:00:00 [facility]00:[facility] 2020-06-14 2020-06-14 Outpatient [facility] [id number] [facility] 2020-04-11 2020-04-11 Outpatient [facility] [id number] [facility] 2020-03-29 2020-03-29 Outpatient [facility] [id number] [facility] 2020-03-05 2020-03-05 Outpatient [facility] [id number] [facility] 2020-03-02 2020-03-02 Outpatient [facility] [id number] [facility] 2020-02-27 2020-02-27 Outpatient [facility] [id number] [facility] 2019-11-29 2019-11-29 Outpatient LILIA CARR [facility] [id number] [place] 00:00:00 00:00:[address] 2018-12-08 2018-12-08 [place] [id number] 06:36:00 09:23:00 Encounter Maximo Acuna [id number] [place] [id number] Surgical [id number] [place] [id number] 2018-11-24 2018-11-24 [place] [id number] 06:30:00 09:21:00 Encounter Maximo Acuna [id number] [place] [id number] Surgical [id number] [place] [id number] 2018-11-23 2018-11-23 Director [employer] 1, Adc Lab [id number] 09:28:35 09:43:35 Visit Armand [id number] [place] 4.2.7.2.686 [place] [id number] [facility] 2018-11-23 2018-11-23 Orders Doctor LILIA [id number] 00:00:00 00:00:00 Only Unassigned, ANCA [id number] [place] [facility] [id number] [id number] Results Test Description Test Time Test Comments Results Result Comments Source SARS-CoV-2 (COVID-19) RNA [Presence] in Respiratory sp ecimen by 2021-01-19 19:22:54 JOE with probe detection Test Item Value Reference Range Interpretation Comme nts SARS-CoV-2 (COVID-19) RNA [Presence] in Respiratory Not detected No t-Detected specimen by JOE with probe detection (test code = 54890-0) Whether patient is employed in a healthcare setting (test code = 31033-5) Whether the patient has symptoms related to condition of interest (test code = 28600-3) Patient was hospitalized because of this condition (test code = 13919-0) Whether the patient was admitted to intensive care unit (ICU) for condition of interest (test code = 13570-6) Whether patient resides in a congregate care setting (test code = 19835-4) SARS-CoV-2 (COVID-19) RNA [Presence] in Respiratory specimen by JOE with probe [id number] 21:14:31 Test Item Value Reference Range Interpretation Comments SARS-CoV-2 (COVID-19) RNA Not detected Not-Detected [Presence] in Respiratory specimen by JOE with probe detection (test code = 37982-0) Whether patient is employed in a healthcare setting (test code = 95408-1) Whether the patient has symptoms related to condition of interest (test code = 17482-2) Patient was hospitalized because of this condition (test code = 87369-4) Whether the patient was admitted to intensive care unit (ICU) for condition of interest (test code = 35587-2) Whether patient resides in a congregate care setting (test code = 57181-5)
[2021-03-31 09:32] LABS: Absolute Lymphocytes (CBC) 0.6 K/uL (0.7-4.9); Basophils % 0.5 % (0-1.3); Hematocrit 32.4 % (39.6-49.0); Lymphocytes % 8.5 % (15.3-44.8); RBC Red Blood Cell Count 3.56 M/uL (4.33-5.43)
[2021-03-31 09:39] LABS: Protime INR 1.16
[2021-03-31 09:52] LABS: ALT/SGPT 31 U/L (12-78); AST/SGOT 14 U/L (15-37); Albumin 2.5 g/dL (3.4-5.0); Alkaline Phosphatase 98 U/L (45-117); BUN Blood Urea Nitrogen 20 mg/dL (7-18); Bicarbonate 28 mmol/L (21-32); Bilirubin Direct 0.2 mg/dL (0-0.2); Bilirubin Total 0.8 mg/dL (0.2-1.0); Glucose Level 142 mg/dL (74-106); Magnesium 1.8 mg/dL (1.8-2.4); NT PRO-BNP 563 pg/mL (<450); Sodium Level 138 mmol/L (136-145); Troponin (Emerg Dept Use Only) < 0.02 ng/mL (0.0-0.045)
[2021-03-31 09:56] LABS: Blood Morphology Comment NOT SEEN (NOT SEEN); Platelet Estimate ADEQ; White Blood Cell Scan OK (OK)
[2021-03-31 10:24] LABS: SARS-COV-2 RT PCR NEGATIVE (NEGATIVE)
--- NOTE | 2021-03-31 10:52 | RAD REPORT ---
EXAM DESCRIPTION: CT - Chest For Pe Angio - 03/31/2021 10:32 am CLINICAL HISTORY: sob COMPARISON: December 2020 TECHNIQUE: Dynamically enhanced axial 3 mm thick images of the chest were obtained during administra tion of <100> mL Isovue 370 IV contrast. Coronal and oblique reconstruction images were generated and reviewed. Exam utilizes a protocol for optimal evaluation of pulmonary arterial tree. Maximum intensity projections 3D imaging was utilized All CT scans are performed using dose optimization technique as appropriate and may include automated exposure control or mA/KV adjustment according to patient size. FINDINGS: A pulmonary embolus is not seen. A thoracic aortic aneurysm is not noted. A pericardial effusion is not seen. Lobulated left pleural masses have increased in size. Posterior upper left pleura mass measures 7.6 x 4.3 centimeters. Mid lateral left pleural mass measures 9 x 5 centimeters. Pleural soft tissue exten ds medially abutting the mediastinum. Posterior right upper lobe mass measures 3.4 x 2.9 centimeters. Right hilar mass measures 6.5 x 4.2 c entimeters. Pleural calcifications. Small to moderate left pleural effusion IMPRESSION: Negative for a pulmonary embolism. 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 Metastases is another consideration 3.4 x 2.9 centimeter right upper lobe mass Large right hilar mass
--- NOTE | 2021-03-31 10:53 | RAD REPORT ---
EXAM DESCRIPTION: Kianat Single View03/31/2021 9:47 am CLINICAL HISTORY: Chest pain COMPARISON: Shortness of breath FINDINGS: Progression in left pleural-based masses probably mesothelioma. Metastasis is another cons ideration Right upper lobe mass and right hilar mass. The heart is mildly enlarged. A central venous catheter has its tip proximal right atrium. Small to moderate left pleural effusion
--- NOTE | 2021-03-31 11:12 | RAD REPORT ---
EXAM DESCRIPTION: USExtrem Venous W Compress Bil03/31/2021 10:59 am CLINICAL HISTORY: Bilateral leg swelling COMPARISON: none FINDINGS: The common femoral, superficial femoral, popliteal and posterior tibial veins bilaterally are compressible and demonstrate augmentation. Doppler demonstrates good flow. IMPRESSION: No evidence of deep venous thrombosis involving either lower extremity.
[2021-03-31] MEDS ORDERED: FUROSEMIDE 20 MG/ 2ML VIAL ONE (12:01)
--- NOTE | 2021-03-31 12:05 | ER ---
Nurse's Notes [facility] Name: Akira Murphy Age: 81 yrs Sex: Male : 1940 Arrival Date: 03/31/2021 Time: 09:05 Bed 4 Private MD: Diagnosis: Dyspnea;Peripheral edema Presentation: 03/31 09:16 Chief complaint: Patient states: Shortness of breath that began last night. Pt has a hx ss of lung CA and wants to make sure that there is nothing going on "other than that.". Coronavirus screen: Client denies travel out of the [place] in the last 14 days. Ebola Screen: Patient denies exposure to infectious person. Patient denies travel to an Ebola-affected area in the 21 days before illness onset. Initial Sepsis Screen: Does the patient meet any 2 criteria? No. Patient's initial sepsis screen is negative. Does the patient have a suspected source of infection? No. Patient's initial sepsis screen is negative. Risk Assessment: Do you want to hurt yourself or someone else? Patient reports no desire to harm self or others. Onset of symptoms was March 30, 2021. 09:16 Method Of Arrival: Wheelchair ss 09:16 Acuity: DARLIN 3 ss Historical: - Allergies: 09:20 Levaquin (Itching); ss - PMHx: 09:20 Diabetes - NIDDM; GERD; High Cholesterol; Hypertension; allergies; ss - Immunization history:: Client reports receiving the 2nd dose of the Covid vaccine. - Social history:: Smoking status: Patient/guardian denies using tobacco, the patient reports quitting approximately 30 years ago. Screenin:22 Abuse screen: Denies threats or abuse. Denies injuries from another. Nutritional jl7 screening: No deficits noted. Tuberculosis screening: No symptoms or risk factors identified. Fall Risk IV access (20 points). Total Gann Fall Scale indicates No Risk (0-24 pts). Assessment: 09:22 General: Appears in no apparent distress. comfortable, Behavior is calm, cooperative. vg1 Pain: Denies pain. Neuro: Level of Consciousness is awake, alert, obeys commands, Oriented to person, place, time, situation. Cardiovascular: Patient's skin is warm and dry. Cardiovascular: Rhythm is sinus rhythm. Respiratory: Reports cough that is difficulty breathing since last night Airway is patent Respiratory effort is even, unlabored, Breath sounds are clear bilaterally. GI: No signs and/or symptoms were reported involving the gastrointestinal system. : No signs and/or symptoms were reported regarding the genitourinary system. EENT: No signs and/or symptoms were reported regarding the EENT system. Derm: Skin is intact, is healthy with good turgor. Musculoskeletal: Circulation, motion, and sensation intact. 09:36 Reassessment: Dr Reich at bedside. vg1 10:30 Reassessment: Patient appears in no apparent distress at this time. No changes from vg1 previously documented assessment. Patient and/or family updated on plan of care and expected duration. Pain level reassessed. Patient is alert, oriented x 3, equal unlabored respirations, skin warm/dry/pink. 11:25 Reassessment: Patient appears in no apparent distress at this time. Patient and/or vg1 family updated on plan of care and expected duration. Pain level reassessed. Patient is alert, oriented x 3, equal unlabored respirations, skin warm/dry/pink. pt states 'still feels shortness of breath'. 12:28 Reassessment: Patient appears in no apparent distress at this time. No changes from vg1 previously documented assessment. Patient is alert, oriented x 3, equal unlabored respirations, skin warm/dry/pink. Vital Signs: 09:16 BP 129 / 64; Pulse 84; Resp 17; Temp 98.3(TE); Pulse Ox 97% on R/A; Weight 99.79 kg; Height 5 ft. 10 in. (177.80 cm); Pain 0/10; 10:12 BP 126 / 64; Pulse 81; Resp 15; Pulse Ox 95% ; jl7 11:26 BP 123 / 59; Pulse 79; Resp 17; Pulse Ox 97% ; vg1 09:16 Body Mass Index 31.57 (99.79 kg, 177.80 cm) ED Course: 09:05 Patient arrived in ED. ds1 09:07 Shannan Dotson FNP-C is [facility]. kb 09:07 Phong Bach MD is Attending Physician. kb 09:10 Bonny Olguin, RAHUL is Primary Nurse. vg1 09:20 Triage completed. ss 09:20 Arm band placed on right wrist. ss 09:22 Patient has correct armband on for positive identification. Bed in low position. Call mary ellen light in reach. Side rails up X 1. community service officer coordinator on. Pulse ox on. NIBP on. Warm blanket given. 09:22 Initial lab(s) drawn, by me, sent to lab. EKG done, by ED staff, reviewed by Phong Bach MD COVID swab sent to lab. Inserted saline lock: 20 gauge in left antecubital area, using aseptic technique. Blood collected. 09:23 No provider procedures requiring assistance completed. vg1 09:47 XRAY Chest (1 view) In Process Unspecified. EDMS 10:32 CT Chest For PE Angio In Process Unspecified. EDMS 11:00 US Extremity Venous W Compression Gary In Process Unspecified. EDMS 12:28 IV discontinued, intact, bleeding controlled, No redness/swelling at site. Pressure vg1 dressing applied. Administered Medications: 12:02 Drug: Lasix (furosemide) 20 mg Route: IVP; Site: left antecubital; vg1 12:29 Follow up: Response: No adverse reaction vg1 Outcome: 12:04 Discharge ordered by . kb 12:28 Discharged to home via wheelchair, with family. vg1 12:28 Condition: good 12:28 Discharge instructions given to patient, family, Instructed on discharge instructions, follow up and referral plans. medication usage, Demonstrated understanding of instructions, follow-up care, medications, Prescriptions given X 1. 12:28 Patient left the ED. vg1 Signatures: Dispatcher [employer] EDMO Shannan Dotson, [employer] FABRICATOR-C [employer] FABRICATOR-Rachell Torres ds1 Gena Foss RN RN ss Leal, Jahala, RN RN jl7 Garcia, Victoria, RN RN vg1 Corrections: (The following items were deleted from the chart) 11:29 11:26 BP 110 / 56; Pulse 79bpm; Resp 17bpm; Pulse Ox 97%; vg1 vg1
--- NOTE | 2021-03-31 12:05 | EDPHYS ---
Physician Documentation [facility] Name: Akira Murphy Age: 81 yrs Sex: Male : 1940 Arrival Date: 03/31/2021 Time: 09:05 Bed 4 Private MD: ED Physician Phong Bach HPI: 03/31 12:25 This 81 yrs old Male presents to ER via Wheelchair with complaints of Shortness Of kb Breath. 12:25 The patient has shortness of breath at rest. Onset: The symptoms/episode began/occurred kb 2 day(s) ago. Duration: The symptoms are continuous. The patient's shortness of breath is aggravated by exertion, supine position. Associated signs and symptoms: Pertinent positives: lower extremity edema. Severity of symptoms: At their worst the symptoms were moderate in the emergency department the symptoms are unchanged. The patient has not experienced similar symptoms in the past. The patient has not recently seen a physician. Pt reports lower extremity swelling for one week and shortness of breath for 2 days. Reports he recently started chemo and radiation for cancer. . Historical: - Allergies: 09:20 Levaquin (Itching); ss - PMHx: 09:20 Diabetes - NIDDM; GERD; High Cholesterol; Hypertension; allergies; ss - Immunization history:: Client reports receiving the 2nd dose of the Covid vaccine. - Social history:: Smoking status: Patient/guardian denies using tobacco, the patient reports quitting approximately 30 years ago. ROS: 12:24 Constitutional: Negative for fever, chills, and weight loss. kb 12:24 Cardiovascular: Positive for edema. 12:24 Respiratory: Positive for dyspnea on exertion, orthopnea, shortness of breath, Negative for cough, hemoptysis, pleurisy, sputum production, wheezing. 12:24 All other systems are negative. Exam: 12:23 Constitutional: This is a well developed, well nourished patient who is awake, alert, kb and in no acute distress. Head/Face: Normocephalic, atraumatic. ENT: Moist Mucous membranes Cardiovascular: Regular rate and rhythm with a normal S1 and S2. No gallops, murmurs, or rubs. No pulse deficits. Respiratory: Respirations even and unlabored. No increased work of breathing. Talking in full sentences Abdomen/GI: Soft, non-tender. No distention Skin: Warm, dry with normal turgor. Normal color. MS/ Extremity: Pulses equal, no cyanosis. Neurovascular intact. Full, normal range of motion. Neuro: Awake and alert, GCS 15, oriented to person, place, time, and situation. Moves all extremities. Normal gait. Psych: Awake, alert, with orientation to person, place and time. Behavior, mood, and affect are within normal limits. 12:23 Cardiovascular: Edema: 2+ edema to level of left ankle and right ankle. 12:23 Respiratory: Breath sounds: decreased breath sounds, that are mild, are scattered. Vital Signs: 09:16 BP 129 / 64; Pulse 84; Resp 17; Temp 98.3(TE); Pulse Ox 97% on R/A; Weight 99.79 kg; ss Height 5 ft. 10 in. (177.80 cm); Pain 0/10; 10:12 BP 126 / 64; Pulse 81; Resp 15; Pulse Ox 95% ; jl7 11:26 BP 123 / 59; Pulse 79; Resp 17; Pulse Ox 97% ; vg1 09:16 Body Mass Index 31.57 (99.79 kg, 177.80 cm) ss MDM: 09:09 Patient medically screened. kb 09:30 Physician consultation: Galdino Reich MD in the emergency department to see patient at 09:30. 12:02 Data reviewed: vital signs, nurses notes. Data interpreted: Pulse oximetry: on room air kb is 97 %. Interpretation: normal. Counseling: I had a detailed discussion with the patient and/or guardian regarding: the historical points, exam findings, and any diagnostic results supporting the discharge/admit diagnosis, lab results, radiology results, the need for outpatient follow up, a family practitioner, to return to the emergency department if symptoms worsen or persist or if there are any questions or concerns that arise at home. Physician consultation: Galdino Reich MD was contacted at 12:02, regarding patient's condition, wants lasix 20mg IV now, 40mg PO daily at home and pt to follow up in office the week after next. Instructions given to pt and family with verbal understanding. 03/31 09:14 Order name: Basic Metabolic Panel kb 03/31 09:14 Order name: CBC with Diff; Complete Time: 09:58 kb 03/31 09:14 Order name: LFT's; Complete Time: 09:56 kb 03/31 09:14 Order name: Magnesium; Complete Time: 09:56 kb 03/31 09:14 Order name: NT PRO-BNP; Complete Time: 09:56 kb 03/31 09:14 Order name: PT-INR; Complete Time: 09:46 kb 03/31 09:14 Order name: Troponin (emerg Dept Use Only); Complete Time: 09:56 kb 03/31 09:14 Order name: XRAY Chest (1 view); Complete Time: 10:54 kb 03/31 09:14 Order name: COVID-19/FLU A+B (Document "Date of Onset" if Symptomatic); Complete Time: kb 10:30 03/31 09:14 Order name: Basic Metabolic Panel; Complete Time: 09:56 EDMS 03/31 09:21 Order name: D-Dimer; Complete Time: 09:56 kb 03/31 09:41 Order name: US Extremity Venous W Compression Gary; Complete Time: 11:14 kb 03/31 09:50 Order name: CT Chest For PE Angio; Complete Time: 10:54 ss 03/31 09:56 Order name: CBC Smear Scan; Complete Time: 09:58 EDMS 03/31 09:14 Order name: EKG; Complete Time: 09:14 kb 03/31 09:14 Order name: Cardiac monitoring; Complete Time: 09:22 kb 03/31 09:14 Order name: EKG - Nurse/Tech; Complete Time: 09:22 kb 03/31 09:14 Order name: IV Saline Lock; Complete Time: 09:22 kb 03/31 09:14 Order name: Labs collected and sent; Complete Time: 09:22 kb 03/31 09:14 Order name: O2 Per Protocol; Complete Time: 09:22 kb 03/31 09:14 Order name: O2 Sat Monitoring; Complete Time: 09:22 kb Administered Medications: 12:02 Drug: Lasix (furosemide) 20 mg Route: IVP; Site: left antecubital; vg1 12:29 Follow up: Response: No adverse reaction vg1 Disposition: 13:17 Co-signature as Attending Physician, Phong Bach MD I agree with the assessment and rn plan of care. Attestation: The patient's history, exam findings, diagnostics, and a summary of any interventions or procedures was reviewed in detail with Shannan BAKER. Disposition Summary: 03/31/21 12:04 Discharge Ordered Location: Home kb Condition: Stable kb Diagnosis - Dyspnea kb - Peripheral edema kb Followup: kb - With: Emergency Department - When: As needed - Reason: Worsening of condition Followup: kb - With: Private Physician - When: 2 - 3 days - Reason: Recheck today's complaints, Continuance of care, Re-evaluation by your physician Discharge Instructions: - Discharge Summary Sheet kb - Shortness of Breath, Adult, [id number] kb - Peripheral Edema kb Forms: - Medication Reconciliation Form kb - Thank You Letter kb - Antibiotic Education kb - Prescription Opioid Use kb Prescriptions: - Lasix 40 mg Oral Tablet - take 1 tablet by ORAL route once daily for 30 days; 30 tablet; Refills: 0, kb Product Selection Permitted Signatures: Dispatcher [employer] EDShannan Arguello, OLIVIA GRIJALVA-Phong Rehman MD MD rn Smirch, Shelby, RN RN ss Garcia, Victoria RN RN vg1
[2021-03-31 12:33] VITALS: TEMP 98.3
[2021-03-31 12:36] VITALS: BP 123/59; O2SAT 97
--- NOTE | 2021-04-01 08:10 | EKG ---
Test Date: 2021-03-31 Test Time: 09:19:03 Glass Driller: NAKUL MEASUREMENT RESULTS: Intervals: Rate: 82 ID: [id number] QRSD: 144 QT: 388 QTc: 453 [place]: P: 45 ID: [id number] QRS: 37 T: 31 INTERPRETIVE STATEMENTS: Normal sinus rhythm Right bundle branch block Abnormal ECG Compared to ECG 10/25/2018 12:56:54 Sinus bradycardia no longer present Electronically Signed On 04-01-21 08:09:46 CIAIO LUMITE INJECTOR by Santiago Howard
== END 2021-03-31 12:28 | disposition home or self-care (01) ==
LOC: ER 09:04
DX: R60.9 Edema, unspecified (principal); Z20.822 Contact with and (suspected) exposure to COVID-19; I10 Essential (primary) hypertension; Z88.1 Allergy status to other antibiotic agents
CPT/HCPCS: 93005; 85025; 80048; 36415; 83735; 85610; 85379; 80076; 84484; 83880; 0240U; 71275; 71045; 93970; 96374; 99284; Q9967; J1940